=== PATIENT | female | born 1990 | race Caucasian/White ===

== ENCOUNTER 2024-08-03 13:03 | Emergency (ER) | payer OTHER, SELFPAY ==
[2024-08-03 13:11] VITALS: BP 136/85; PULSE 74; RESP 16; TEMP 36.6; O2SAT 100
[2024-08-03 13:17] LABS: BEDSIDEPREGUCG Negative (Negative)
[2024-08-03 13:28] LABS: Basophils Absolute Auto 0.1 K/mm3 (0.0-0.1); Basophils Percent Auto 0.9 % (0.2-1.2); Eosinophils Absolute Auto 0.3 K/mm3 (0-0.3); Eosinophils Percent Auto 2.9 % (0-4.4); Hematocrit 43.5 % (37.0-47.0); Hemoglobin 15.1 g/dL (12.0-15.0); Immature Granulocyte Absolute 0.01 K/mm3 (0.00-0.031); Immature Granulocyte Percent A 0.1 % (0-0.5); Lymphocytes Absolute Auto 2.78 K/mm3 (0.9-3.2); Lymphocytes Percent Auto 31.3 % (18.3-44.2); Mean Corpuscular HGB Conc 34.7 g/dl (32-36); Mean Corpuscular Hemoglobin 33.1 pg (26-34); Mean Corpuscular Volume 95.4 fl (80-100); Mean Platelet Volume 9.7 fl (7.4-10.4); Monocytes Absolute Auto 0.6 K/mm3 (0.1-0.6); Monocytes Percent Auto 6.7 % (2.6-8.5); Neutrophils Absolute Auto 5.2 K/mm3 (1.3-6.7); Neutrophils Percent Auto 58.1 % (45.5-73.1); Platelet Count Result 226 k/mm3 (150-375); Red Blood Count 4.56 M/mm3 (4.2-5.4); Red Cell Distribution Width 11.9 % (11.5-14.5); White Blood Count 8.9 K/mm3 (4.5-10.0)
[2024-08-03 13:32] LABS: Add Urine Microscopic? YES; Appearance Urine Clear (Clear); Bacteria Urine None Seen /hpf; Bilirubin Urine 1+ (Negative); Blood Urine Negative (Negative); Color Urine Dark Yellow (Yellow); Glucose Urine UA Negative (Negative); Ketones Urine 1+ mg/dL (Negative); Leukocyte Esterase Ur 2+ LEU/UL (Negative); Nitrate Urine Negative (Negative); Non Pathogenic Casts 0-2; Protein Urine Trace mg/dL (Negative); Specific Grav Ur 1.021 (1.001-1.035); Squamous Epithelial Cell Urine None Seen /hpf (Few); WBC Urine 21-50 /hpf (0-3); pH Urine 6.5 (5.0-9.0)
[2024-08-03 13:40] LABS: Alanine Aminotransferase 16 U/L (6-35); Albumin Level 4.6 g/dL (3.5-5.1); Alkaline Phosphatase 74 U/L (38-126); Anion Gap 7 mmol/L (4-12); Aspartate Amino Transferase 24 U/L (14-36); Bilirubin,Total 0.8 mg/dL (0.2-1.3); Blood Urea Nitrogen 10 mg/dL (7-17); Calcium 9.4 mg/dL (8.4-10.2); Carbon Dioxide 35 mmol/L (22-30); Chloride 97 mmol/L (98-107); Estimated CRCL calculation 144 ml/min; Estimated Glomerular Filt Rate > 60; Glucose 90 mg/dL (65-110); Lipase 68 U/L (23-300); Potassium 3.2 mmol/L (3.4-5.0); Sodium 139 mmol/L (137-145)
[2024-08-03 15:24] LABS: Trichomonas Vag PCR DETECTED (NOT DETECTE)
--- NOTE | 2024-08-03 15:35 | ED.GENADULT ---
HPI - General Adult General Chief complaint: Abdominal Pain Stated complaint: burning with urination, lower abd. pain Time Seen by Provider: 08/03/24 13:23 History of Present Illness HPI narrative: 34-year-old female presented to the emergency department for evaluation for urinary symptoms and vaginal soreness. Patient states that when she had her routine follow-up with her OB Gyne on 06/25 she had negative STI testing but did test positive for BV at this time patient was in is asymptomatic ramirez she was not treated with antibiotics. Patient states about a week ago she began developing urinary symptoms. Patient was treated with Macrobid but states that her symptoms are continuing to worsen. Patient reports clear vaginal discharge, vaginal soreness and pain with urination. Related Data Allergies Allergy/AdvReac Type Severity Reaction Status Date / Time codeine Allergy Hives Verified 08/03/24 13:04 Review of Systems Review of Systems: All systems reviewed & are unremarkable except as noted in HPI and below Exam Narrative: APPEARANCE: Well appearing, no pain, no distress, well-nourished. HEAD: normocephalic, atraumatic. EYES: PERRLA/EOMI, conjunctivae clear. NOSE: Normal no drainage EARS:TMS clear with good light reflex. THROAT: Pharynx clear, no exudate. NECK: Supple. No adenopathy, no masses. RESPIRATORY: Airway patent, respirations nonlabored. Clear to auscultation bilaterally, no rales, rhonchi, wheezing. CARDIOVASCULAR: Regular rate and rhythm without murmurs rubs or gallops. ABDOMINAL: Soft, nontender, nondistended, normal bowel sounds MUSCULOSKELETAL: Moves all extremities. Strength/ROM intact, No edema, No calf tenderness. NEURO: Alert. Cranial nerves II through XII intact. grossly intact SKIN: Warm, dry. Normal Color Course Vital Signs Vital signs: Vital Signs Temperature 97.9 F 08/03/24 13:11 Pulse Rate 74 08/03/24 13:11 Respiratory Rate 16 08/03/24 13:11 Blood Pressure 136/85 08/03/24 13:11 Pulse Oximetry 100 08/03/24 13:11 Oxygen Delivery Room Air 08/03/24 13:11 Temperature 97.9 F 08/03/24 13:11 Pulse Rate 86 08/03/24 15:38 Respiratory Rate 15 08/03/24 15:38 Blood Pressure 128/76 08/03/24 15:38 Pulse Oximetry 99 08/03/24 15:38 Oxygen Delivery Room Air 08/03/24 13:11 Medical Decision Making MDM Narrative Medical decision making narrative: 34-year-old female presents to the emergency department for evaluation for urinary symptoms. Urine is concerning for urinary tract infection and patient was started on Rocephin and will be discharged home on Keflex. Patient did test positive for Trichomonas and was started on Flagyl emergency department. Patient will be discharged home Flagyl for home as well. patient was of the results of the workup and plan for treatment. All questions concerns were addressed. Differential Diagnosis Differential Diagnosis: Urinary tract infection, chlamydia, gonorrhea, Trichomonas, bacterial vaginosis Vital Signs Vital Signs: Vital Signs Temperature 97.9 F 08/03/24 13:11 Pulse Rate 74 08/03/24 13:11 Respiratory Rate 16 08/03/24 13:11 Blood Pressure 136/85 08/03/24 13:11 Pulse Oximetry 100 08/03/24 13:11 Oxygen Delivery Room Air 08/03/24 13:11 Temperature 97.9 F 08/03/24 13:11 Pulse Rate 86 08/03/24 15:38 Respiratory Rate 15 08/03/24 15:38 Blood Pressure 128/76 08/03/24 15:38 Pulse Oximetry 99 08/03/24 15:38 Oxygen Delivery Room Air 08/03/24 13:11 Lab Data Lab results reviewed: Yes I reviewed the patient's lab results. 08/03/24 13:19 08/03/24 13:19 Labs: Lab Results 08/03/24 08/03/24 Range/Units 13:16 13:19 WBC 8.9 (4.5-10.0) K/mm3 RBC 4.56 (4.2-5.4) M/mm3 Hgb 15.1 H (12.0-15.0) g/dL Hct 43.5 (37.0-47.0) % MCV 95.4 (80-100) fl MCH 33.1 (26-34) pg MCHC 34.7 (32-36) g/dl RDW 11.9 (11.5-14.5) % Plt Count 226 (150-375) k/mm3 MPV 9.7 (7.4-10.4) fl Immature Gran % (Auto) 0.1 (0-0.5) % Neut % (Auto) 58.1 (45.5-73.1) % Lymph % (Auto) 31.3 (18.3-44.2) % [place] % (Auto) 6.7 (2.6-8.5) % Eos % (Auto) 2.9 (0-4.4) % Baso % (Auto) 0.9 (0.2-1.2) % Lymph # (Auto) 2.78 (0.9-3.2) K/mm3 [place] # (Auto) 0.6 (0.1-0.6) K/mm3 Eos # (Auto) 0.3 (0-0.3) K/mm3 Baso # (Auto) 0.1 (0.0-0.1) K/mm3 Abs Immat Gran (auto) 0.01 (0.00-0.031) K/mm3 Absolute Neuts (auto) 5.2 (1.3-6.7) K/mm3 Absolute Nucleated RBC 0.000 (0.0-0.012) K/mm3 Nucleated RBC % 0.0 (0.0-0.2) % Sodium 139 (137-145) mmol/L Potassium 3.2 L (3.4-5.0) mmol/L Chloride 97 L (98-107) mmol/L Carbon Dioxide 35 H (22-30) mmol/L Anion Gap 7 (4-12) mmol/L BUN 10 (7-17) mg/dL Creatinine 0.60 L (0.7-1.0) mg/dL Estim Creat Clear Calc 144 ml/min Estimated GFR > 60 (59 - ) Glucose 90 (65-110) mg/dL Calcium 9.4 (8.4-10.2) mg/dL Total Bilirubin 0.8 (0.2-1.3) mg/dL AST 24 (14-36) U/L ALT 16 (6-35) U/L Alkaline Phosphatase 74 (38-126) U/L Total Protein 8.0 (6.3-8.2) g/dL Albumin 4.6 (3.5-5.1) g/dL Lipase 68 (23-300) U/L Urine Color Dark yellow (Yellow) Urine Appearance Clear (Clear) Urine pH 6.5 (5.0-9.0) Ur Specific [place] 1.021 (1.001-1.035) Urine Protein Trace (Negative) mg/dL Urine Glucose (UA) Negative (Negative) mg/dL Urine Ketones 1+ H (Negative) mg/dL Ur Blood (Man) Negative (Negative) Urine Nitrate Negative (Negative) Urine Bilirubin 1+ H (Negative) Urine Urobilinogen 1.0 (<2.0) mg/dL Leukocyte Esterase Rfl 2+ H (Negative) BRITTNEY/UL Urine RBC 3-5 H (0-2) /hpf Urine WBC 21-50 H (0-3) /hpf Ur Squamous Epith Cells None seen (Few) /hpf Urine Bacteria None seen /hpf Urine Casts 0-2 POC Urine HCG, Qual Negative (Negative) C. trachomatis (PCR) Not detected (NOT DETECTE) N. gonorrhoeae (PCR) Not detected (NOT DETECTE) T. vaginalis (PCR) Detected A (NOT DETECTE) Discharge Plan Discharge Clinical Impression: UTI (urinary tract infection), Trichomonas infection Patient Disposition: Home, Self-Care Condition: Stable Instructions: Antibiotic Form, Bacterial Vaginosis (ED), Urinary Tract Infection in Women (DC) Additional Instructions: Antibiotic as directed for the urinary tract infection. Antibiotic as directed for Trichomonas. have close follow-up with OB Gyne. if you have any worsening symptoms then please call or return to the emergency department. Prescriptions: New cephalexin 500 mg capsule 500 mg PO Q8H 7 Days Qty: 21 0RF metronidazole 500 mg tablet 500 mg PO Q8H 7 Days Qty: 21 0RF Follow-up/Referrals: Nayan,Chantell Mckeon. [Primary Care Provider] -
[2024-08-03 15:38] VITALS: BP 128/76; PULSE 86; RESP 15; O2SAT 99
[2024-08-03] MEDS: metroNIDAZOLE 500 MG TABLET PO (15:58)
[2024-08-03 15:59] LABS: Chlamydia trachomatis NOT DETECTED (NOT DETECTE); Neisseria gonorrhoeae PCR NOT DETECTED (NOT DETECTE)
== END 2024-08-03 16:33 | disposition home or self-care (01) ==
PROVIDERS: Emergency Provider Emergency Medicine; PCP Internal Medicine Infectious Disease
DX: N39.0 Urinary tract infection, site not specified (principal); A59.01 Trichomonal vulvovaginitis
CPT/HCPCS: 36415; 80053; 81001; 81025; 83690; 85025; 87086; 87491; 87591; 87661; 96365; 99284; A9270; J0696

== ENCOUNTER 2024-09-20 12:47 | Emergency (ER) | payer OTHER, SELFPAY ==
[2024-09-20 13:02] VITALS: BP 142/73; PULSE 89; RESP 18; TEMP 36.3; O2SAT 100
--- NOTE | 2024-09-20 13:20 | ED_ITS ---
HPI - Nausea/Vomiting/Diarrhea General Chief complaint: Nausea/Vomiting/Diarrhea Stated complaint: abd pain, vomiting Focused HPI: This is a 34-year-old female who presents to the ED for chief complaint of N/ V since 0 400 this morning. Patient reports that she had some leftover last night to eat but was feeling fine until the middle of the night. States that she is having mild abdominal pain diffusely. Denies diarrhea, fevers, chills. GENERAL: Well-appearing, well-nourished, and in no acute distress. HEAD: Normocephalic, atraumatic. CHEST: Clear to auscultation. No respiratory distress. HEART: Regular rate and rhythm. NEURO: Alert and oriented x3. Patient screened in triage and initial orders placed. Additional care and disposition to be based upon diagnostic testing and treatment. Source: patient Mode of arrival: ambulatory Limitations: no limitations Related Data Allergies Allergy/AdvReac Type Severity Reaction Status Date / Time codeine Allergy Hives Verified 08/03/24 13:04 Course Vital Signs Vital signs: Vital Signs Temperature 97.3 F L 09/20/24 13:02 Pulse Rate 89 09/20/24 13:02 Respiratory Rate 18 09/20/24 13:02 Blood Pressure 142/73 H 09/20/24 13:02 Pulse Oximetry 100 09/20/24 13:02 Oxygen Delivery Room Air 09/20/24 13:02 Temperature 97.3 F L 09/20/24 13:02 Pulse Rate 89 09/20/24 13:02 Respiratory Rate 18 09/20/24 13:02 Blood Pressure 142/73 H 09/20/24 13:02 Pulse Oximetry 100 09/20/24 13:02 Oxygen Delivery Room Air 09/20/24 13:02 Discharge Plan Discharge Patient Language: Vietnamese Prescriptions: No Action cephalexin 500 mg capsule 500 mg PO Q8H 7 Days Qty: 21 0RF metronidazole 500 mg tablet 500 mg PO Q8H 7 Days Qty: 21 0RF Follow-up/Referrals: Nayan,Danny Mckeon [Primary Care Provider] -
== END 2024-09-20 21:25 | disposition left against medical advice (07) ==
LOC: ANHED 19:11
PROVIDERS: Emergency Provider Physician Assistant; PCP Internal Medicine Infectious Disease
DX: K52.9 Noninfective gastroenteritis and colitis, unspecified (principal)
CPT/HCPCS: 99281

== ENCOUNTER 2025-06-10 13:02 | Emergency (ER) | payer MEDICAID, SELFPAY ==
--- NOTE | ~2025-06-10 | US_ITS ---
EXAM/PROCEDURE: US OB <=14 wk fetus w TV - 06/10/2025 13:43 CDT HISTORY: 35 years old Female with ectopic COMPARISON: None available. TECHNIQUE: Multiple transvaginal images were obtained. FINdINGS: There is a single, live, intrauterine gestation with a heart rate of 119 bpm. The crown-rump length is 8 mm, which is equivalent to a 6 week, 5 day gestation. This gives an estimated date of delivery of 01/29/2026. An unremarkable yolk sac is seen. The gestational sac is unremarkable. There is no myometrial abnormality. The ovaries appear unremarkable. No significant free fluid is seen. IMPRESSION: Single live embryo with estimated date of delivery of 01/29/2026. Reviewed, dictated and finalized at location N.
[2025-06-10 13:05] VITALS: BP 127/60; PULSE 72; RESP 15; TEMP 37.2; O2SAT 100
--- NOTE | 2025-06-10 13:32 | ED.FEMALEGU ---
HPI - Female Genitourinary General Chief complaint: Vaginal Bleeding Stated complaint: spotting, cramping, 6-7 w eeks Time Seen by Provider: 06/10/25 13:29 Source: patient Mode of arrival: ambulatory Limitations: no limitations History of Present Illness HPI Narrative: 35 years old white female came to the ED by private car because after finishing urinating was wiping, noticed pink discoloration on the toilet paper, last menstrual period April 23, 2025. Patient is 4, para 1 3. patient denies any pain, fever, chills, nausea, vomiting, diarrhea, constipation or urinary symptoms Related Data Home Medications ?Medication ?Instructions ?Recorded ?Confirmed ?Last Taken ?Type chlorthalidone 25 mg tablet 25 mg PO 06/03/25 06/04/25 Unknown History levothyroxine 125 mcg tablet 125 mcg PO 06/03/25 06/04/25 Unknown History losartan 50 mg tablet 50 mg PO 06/03/25 06/04/25 Unknown History folic acid 20 mg capsule 80 mg PO DAILY 06/04/25 06/04/25 Unknown History vits no.126-ferrous fum tablet PO 06/04/25 06/04/25 Unknown History 28 mg iron-folic acid 800 mcg tablet (Classic ) Allergies Allergy/AdvReac Type Severity Reaction Status Date / Time Penicillins Allergy Mild Hives Verified 06/04/25 10:28 codeine Allergy Hives Verified 06/04/25 10:28 Review of Systems Review of Systems: All systems reviewed & are unremarkable except as noted in HPI and below PMFSH Past Medical History Medical History Hypertension Pulmonary embolism Surgical History Surgical History History of orthopedic surgery Hx of tonsillectomy Family History Family History Mother Diabetes mellitus Hypertension Father Depression Grandparent Depression Hypertension Social History Social History Smoking status: Never smoker Alcohol intake: former Alcohol use details: social Substance use: former Substance use type: marijuana Do You Feel Safe in your Home?: Yes Lack of Transportation: No Lack of Food: Never True Current Housing: I Have Housing Concerned About Future Housing: No Difficulty Paying Gas/Electric Bills: No Difficulty Paying for Meds: No Currently Unemployed: No Education: High School Diploma/GED Difficulty w/ Childcare or Family Care: No Living arrangements: with family Occupation/Education: occupation Gender identity (if verbalized by the patient): Female Sexual Orientation (if Verbalized by the Patient): Straight or Heterosexual Exam Narrative: General appearance: Well-developed, well-nourished Skin: Normal color Head: Normocephalic, nontraumatic Eyes: Clear conjunctiva ENT: Oropharynx normal, ears normal, nose normal Neck: Supple, nontender Chest and respiratory: Airway patent, no respiratory distress, no accessory muscle use Heart: Regular rate/rhythm Abdomen: Soft, nontender, no organomegaly, quiet bowel sounds Vascular: Normal peripheral pulses, normal capillary refill. Musculoskeletal: Normal range of motion, nontender back Neurologic: Alert and oriented ?3, SUPERVISOR PATCHING is normal as tested, no gross motor deficit Course Vital Signs Vital signs: Vital Signs Temperature 37.2 C 06/10/25 13:05 Pulse Rate 72 06/10/25 13:05 Respiratory Rate 15 06/10/25 13:05 Blood Pressure 127/60 06/10/25 13:05 Pulse Oximetry 100 06/10/25 13:05 Temperature 37.2 C 06/10/25 13:05 Pulse Rate 67 06/10/25 16:05 Respiratory Rate 20 06/10/25 16:05 Blood Pressure 125/76 06/10/25 16:05 Pulse Oximetry 97 06/10/25 16:05 Oxygen Delivery Room Air 06/10/25 14:14 MDM - Female Genitourinary MDM Narrative Medical decision making narrative: Differential diagnosis include ectopic , threatened , incomplete, complete Blood workup today showed no acute abnormality Pelvic ultrasound showed single live intrauterine otherwise within normal limit Pelvic exam unremarkable Discharged home to follow-up with OBGYN as needed Pelvic rest and bed rest for the next 5-7 days. Patient blood type is negative, RhoGAM given prior to discharge Differential Diagnosis Differential diagnosis: Likely other (As above) Medical Records Attestation: I reviewed the patient's medical records. Lab Data Attestation: I reviewed the patient's lab results. 06/10/25 14:31 06/10/25 14:31 Labs: Lab Results 06/10/25 06/10/25 Range/Units 14:31 16:06 WBC 7.3 (4.5-10.0) K/mm3 RBC 3.78 L (4.2-5.4) M/mm3 Hgb 12.3 (12.0-15.0) g/dL Hct 36.0 L (37.0-47.0) % MCV 95.2 (80-100) fl MCH 32.5 (26-34) pg MCHC 34.2 (32-36) g/dl RDW 12.3 (11.5-14.5) % Plt Count 188 (150-375) k/mm3 MPV 9.9 (7.4-10.4) fl Immature Gran % (Auto) 0.3 (0-0.5) % Neut % (Auto) 64.3 (45.5-73.1) % Lymph % (Auto) 26.3 (18.3-44.2) % [place] % (Auto) 8.0 (2.6-8.5) % Eos % (Auto) 0.8 (0-4.4) % Baso % (Auto) 0.3 (0.2-1.2) % Lymph # (Auto) 1.92 (0.9-3.2) K/mm3 [place] # (Auto) 0.6 (0.1-0.6) K/mm3 Eos # (Auto) 0.1 (0-0.3) K/mm3 Baso # (Auto) 0.0 (0.0-0.1) K/mm3 Abs Immat Gran (auto) 0.02 (0.00-0.031) K/mm3 Absolute Neuts (auto) 4.7 (1.3-6.7) K/mm3 Absolute Nucleated RBC 0.000 (0.0-0.012) K/mm3 Nucleated RBC % 0.0 (0.0-0.2) % Sodium 135 L (137-145) mmol/L Potassium 4.1 (3.4-5.0) mmol/L Chloride 103 (98-107) mmol/L Carbon Dioxide 28 (22-30) mmol/L Anion Gap 4 (4-12) mmol/L BUN 12 (7-17) mg/dL Creatinine 0.59 L (0.7-1.0) mg/dL Estim Creat Clear Calc 151 ml/min Estimated GFR > 60 (59 - ) Glucose 95 (65-110) mg/dL Calcium 8.7 (8.4-10.2) mg/dL Total Bilirubin 0.5 (0.2-1.3) mg/dL AST 22 (14-36) U/L ALT 14 (6-35) U/L Alkaline Phosphatase 58 (38-126) U/L Total Protein 6.0 L (6.3-8.2) g/dL Albumin 3.6 (3.5-5.1) g/dL Beta HCG, Quant 01475.00 mIU/ML Urine Color Yellow (Yellow) Urine Appearance Clear (Clear) Urine pH 6.5 (5.0-9.0) Ur Specific [place] 1.015 (1.001-1.035) Urine Protein Negative (Negative) mg/dL Urine Glucose (UA) Negative (Negative) mg/dL Urine Ketones Negative (Negative) mg/dL Ur Blood (Man) Negative (Negative) Urine Nitrate Negative (Negative) Urine Bilirubin Negative (Negative) Urine Urobilinogen 1.0 (<2.0) mg/dL Leukocyte Esterase Rfl Negative (Negative) BRITTNEY/UL Blood Type A Negative Antibody Screen Negative Screen Not Reportable Baby's Blood Type Not Reportable Baby's GLADYS Not Reportable Doses of RhIg Required 1 Imaging Data Radiologist's impression: Impressions Obstetrics Ultrasound 06/10/25 14:21 IMPRESSION: Single live embryo with estimated date of delivery of 01/29/2026. Critical Care Time Critical Care Time Critical Care Time: No Discharge Plan Discharge Clinical Impression: , threatened Patient Disposition: Home Condition: Stable Instructions: Threatened Miscarriage (ED) Additional Instructions: Return if symptoms are worsening , call your OBGYN for appointment, take Tylenol as as needed for aches and pain, continue home medications., bed rest, pelvic rest Patient Language: [place]ill[place] Prescriptions: No Action losartan 50 mg tablet 50 mg PO chlorthalidone 25 mg tablet 25 mg PO levothyroxine 125 mcg tablet 125 mcg PO folic acid 20 mg capsule 80 mg PO DAILY Classic 28 mg iron- 800 mcg tablet PO progesterone micronized 200 mg capsule 200 mg vaginal QHS Qty: 20 0RF enoxaparin [Lovenox] 40 mg/0.4 mL syringe 40 mg subcut DAILY 240 Days Qty: 96 0RF Follow-up/Referrals: Nayan,Chantell Mckeon. [Primary Care Provider]
[2025-06-10 14:14] VITALS: BP 126/72; PULSE 64; RESP 20; O2SAT 100
[2025-06-10 14:37] LABS: Hematocrit 36.0 % (37.0-47.0); Hemoglobin 12.3 g/dL (12.0-15.0); Immature Granulocyte Percent A 0.3 % (0-0.5); Lymphocytes Absolute Auto 1.92 K/mm3 (0.9-3.2); Mean Corpuscular HGB Conc 34.2 g/dl (32-36); Mean Corpuscular Hemoglobin 32.5 pg (26-34); Mean Corpuscular Volume 95.2 fl (80-100); Nucleated Red Blood Cells Absolute Auto 0.000 K/mm3 (0.0-0.012); Nucleated Red Blood Cells Perc 0.0 % (0.0-0.2); Platelet Count Result 188 k/mm3 (150-375); Red Blood Count 3.78 M/mm3 (4.2-5.4); White Blood Count 7.3 K/mm3 (4.5-10.0)
--- OUTSIDE RECORDS SUMMARY | 2025-06-10 14:40 | XMS_ITS | Clinical Summary ---
Author Organization [facility] Address [address] [place] [address] Care Team Providers Care Cordwood Cutter Helper Name Role Phone Unavailable Primary Care Provider Unavailabl e Source Comments [facility],non-owned Affiliates and Associated Physician Practices is amultiple site organization consisting of ambulatory clinics and hospital sitesin [place], [place], [place] and [place]. This disclosure is being madepursuant to the Care Everywhere program and may not contain all information available regarding this patient. Last updated 18.[facility] [employer] Allergies Active Allergy Reactions Criticality Noted Date Comments Codeine Urticaria 12/22/2012 Pt states to nurse today (12/28/12) that she has taken percocet before. Inez Irizarry, Pharm.D Ext [phone] Codeine Anaphylaxis High 09/25/1999 Medications * Be aware that medications may not be up to date on this document. Alwaysverify current medications with the patient. progesterone micronized (PROMETRIUM) 100 MG capsule Take 100 mg by mouth twice daily before meal and at bedtime. Active Cholecalciferol (VITAMIN D) 1000 UNIT capsule Take 1,000 Units by mouth once daily. Active vitamin-ferrous fumarate-folic acid (NATALCARE PLUS) 27-1 MG tablet Take 1 Tab by mouth once daily. Active levothyroxine (SYNTHROID) 125 MCG tabletIndicatio ns:Hypothyroidi sm Take 125 mcg by mouth daily before breakfast. Indications: Underactive Thyroid Active ibuprofen (MOTRIN) 600 MG tablet Take 1 Tab by mouth every 6 hours as needed for Pain. 60 Tab 1 3 Active Additional Information Patient not taking.Reported on 08/07/2020 docusate sodium (COLACE) 100 MG capsule Take 1 Cap by mouth 2 times daily. 60 Cap 1 3 Active Additional Information Patient not taking.Reported on 08/07/2020 multivitamin (OPURITY) CHEW tablet Take 1.25 mg by mouth once daily Active gabapentin (NEURONTIN) 100 MG capsule Take 1 capsule by mouth 3 times daily 90 capsule 2 0 Active Active Problems Problem Noted Date Diagnosed Date Cord Blood Chorioamnionitis study patient 2012 Overview (12/25/2012): This patient is consented and enrolled in the Cord Blood Chorioamnionitis Research study. 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 Hypothyroidism complicating 12/22/2012 Overview (12/22/2012): Levothyroxine 125 mcg initiated Mid-November 2012 Obesity 12/22/2012 Overview (12/22/2012): Patient reports normal GCT - will obtain records with accuchecks until that time labor 12/22/2012 Supervision of high-risk 12/22/2012 Overview (12/25/2012): Transfer from Dr. Morris Rh negative, rhogam given 12/12 GCT normal per patient. Due date by LMP=8wk us A-/I/-/- HIV NR Comments Yes Encounters Date Type Department Care Team Description 06/09/2025 Travel from Last 3 Months Immunizations Immunization Administration Dates Next Due Rho D Immune Globulin 12/29/2012 Family History Medical History Relation Name Comments Diabetes Maternal Grandmother Hypertension Maternal Grandmother Depression Mother Diabetes Mother Hypertension Mother Leukemia Paternal Grandfather possibl e environmental cause Diabetes Paternal Grandmother Leukemia Paternal Grandmother possibl e environmental cause Other - Defects Sister cleft lip Relation Name Status Comments Maternal Grandmother Mother Paternal Grandfather Paternal Grandmother Sister Social History Tobacco Use Types Packs/Day Years Used Date Smoking Tobacco: Never Smokeless Tobacco: Never Tobacco Cessation:Counseling Given: Yes Alcohol Use Standard Drinks/Week Comments Not Currently 0 (1 standard drink = 0.6 oz pur e alcohol) Comments Yes Sex and Gender Information Value Date Recorded Sex Assigned at Not on file Legal Sex 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 Gender Identity Not on file Sexual Orientation Not on file Last Filed Vital Signs Vital Sign Reading Time Taken Comments Blood Pressure 135/87 08/07/2020 2:10 PM MUNITIONS HANDLER SUPERVISOR Pulse 73 08/07/2020 2:10 PM MUNITIONS HANDLER SUPERVISOR Temperature 36.8 C (98.2 F) 07/06/2017 1:30 PM CDT Respiratory Rate 16 07/06/2017 4:15 PM CDT Oxygen Saturation 96% 07/06/2017 4:15 PM CDT Inhaled Oxygen Concentration - - Weight 134.4 kg (296 lb 3.2 oz) 08/07/2020 2:10 PM MUNITIONS HANDLER SUPERVISOR Height 167.6 cm (5' 6) 08/07/2020 2:10 PM MUNITIONS HANDLER SUPERVISOR Body Mass Index 47.81 08/07/2020 2:10 PM MUNITIONS HANDLER SUPERVISOR Plan of Treatment Upcoming Encounters Date Type Department Care Team (Late st Contact Info) Description 06/11/2025 8:15 AM CDT Hospital Encounter [facility] & Care [address] [place] [address] [facility] 4TH [place] [phone] Health Maintenance Due Date Last Done Comments HIV SCREENING 2003 HEPATITIS C SCREENING 04/20/2006 DTAP/TDAP/TD VACCINES (1 - Tdap) 2007 HEPATITIS B VACCINE (1 of 3 - 19+ 3-dose series) 2007 PAP SMEAR 2009 HPV VACCINE (1 - 3-dose SCDM series) 2015 DEPRESSION SCREENING 09/25/2024 COVID-19 VACCINE (3 - 2024- season) 2025 11/22/2021, 08/26/2021 INFLUENZA VACCINE (#1) 2025 , 07/12/2023, 06/10/2022, Additional history exists ZOSTER VACCINE (1 of 2) 2038 Respiratory Syncytial Virus (RSV) Vaccine Pt: or over 60 yrs (1 - 1-dose 75+ series) 2063 HIB VACCINE Aged Out No longer eligi ble based on patient's age to complete this topic MENINGOCOCCAL (Group B) VACCINE SHARED DECISION-MAKING Aged Out No longer eligible based on patient's age to complete this topic MENINGOCOCCAL GROUPS A/C/Y/W VACCINE Aged Out No longer eligible based on patient's age to complete this topic PNEUMOCOCCAL VACCINE Aged Out No long er eligible based on patient's age to complete this topic Procedures Procedure Name Priority Date/Time Associated Diagnosis Comments CULTURE STREP B STAT 12/22/2012 1:10 AM CDT from Last 3 Months or Most Recently Relevant to Health Maintenance Results * CULTURE STREP B (12/22/2012 1:10 AM CDT) Culture Negative for Beta Hemolytic Streptococcus Group B 12/25/2012 5:59 AM CDT [facility] Miscellaneous samples (specimen) PART OF UTERINE CERVIX / Unknown 12/22/2012 1:10 AM CDT 12/22/2012 1:18 AM CDT us Sapna Jerome MD LAB - MICROBIOLOGY ORD ERABLES Final Result [facility] [address] [place] [address], [facility] from Last 3 Months or Most Recently Relevant to Health Maintenance Insurance MEDICAID - [place] Advance Directives * FULL RESUSCITATION (Latest Code Status on File) Date Activated Date Inactivated Comments 12/25/2012 3:16 AM 12/30/2012 3:28 PM * FULL RESUSCITATION Date Activated Date Inactivated Comments 12/22/2012 12:48 AM 12/25/2012 3:16 AM
--- OUTSIDE RECORDS SUMMARY | 2025-06-10 14:40 | XMS_ITS | Encounter Summary ---
Author Organization [facility] Address [address] [place] [address] Care Team Providers Care Principal Biostatistician Name Role Phone Unavailable Primary Care Provider Unavailabl e Encounter Details Date Type Department Care Team (Latest Contact Info) Description 06/09/2025 Travel Social History Tobacco Use Types Packs/Day Years Used Date Smoking Tobacco: Never Smokeless Tobacco: Never Alcohol Use Standard Drinks/Week Comments Not Currently 0 (1 standard drink = 0.6 oz pur e alcohol) Comments Yes Sex and Gender Information Value Date Recorded Sex Assigned at Not on file Legal Sex 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
[2025-06-10 14:47] LABS: Alanine Aminotransferase 14 U/L (6-35); Albumin Level 3.6 g/dL (3.5-5.1); Alkaline Phosphatase 58 U/L (38-126); Anion Gap 4 mmol/L (4-12); Aspartate Amino Transferase 22 U/L (14-36); Bilirubin,Total 0.5 mg/dL (0.2-1.3); Blood Urea Nitrogen 12 mg/dL (7-17); Calcium 8.7 mg/dL (8.4-10.2); Carbon Dioxide 28 mmol/L (22-30); Chloride 103 mmol/L (98-107); Estimated CRCL calculation 151 ml/min; Estimated Glomerular Filt Rate > 60; Glucose 95 mg/dL (65-110); Potassium 4.1 mmol/L (3.4-5.0); Sodium 135 mmol/L (137-145); Total Protein 6.0 g/dL (6.3-8.2)
--- OUTSIDE RECORDS SUMMARY | 2025-06-10 15:19 | XMS_ITS | Clinical Summary ---
Author Organization [facility] Address [address] [place] [address] Care Team Providers Care Data Warehousing Specialist Name Role Phone Unavailable Primary Care Provider Unavailabl e Source Comments [facility],non-owned Affiliates and Associated Physician Practices is amultiple site organization consisting of ambulatory clinics and hospital sitesin [place], [place], [place] and [place]. This disclosure is being madepursuant to the Care Everywhere program and may not contain all information available regarding this patient. 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 Gender Identity Not on file Sexual Orientation Not on file Last Filed Vital Signs Vital Sign Reading Time Taken Comments Blood Pressure 135/87 08/07/2020 2:10 PM TOOL RENTAL TECHNICIAN Pulse 73 08/07/2020 2:10 PM TOOL RENTAL TECHNICIAN Temperature 36.8 C (98.2 F) 07/06/2017 1:30 PM CDT Respiratory Rate 16 07/06/2017 4:15 PM CDT Oxygen Saturation 96% 07/06/2017 4:15 PM CDT Inhaled Oxygen Concentration - - Weight 134.4 kg (296 lb 3.2 oz) 08/07/2020 2:10 PM TOOL RENTAL TECHNICIAN Height 167.6 cm (5' 6) 08/07/2020 2:10 PM TOOL RENTAL TECHNICIAN Body Mass Index 47.81 08/07/2020 2:10 PM TOOL RENTAL TECHNICIAN Plan of Treatment Upcoming Encounters Date Type Department Care Team (Late st Contact Info) Description 06/11/2025 8:15 AM CDT Hospital Encounter [facility] [address] [place] [address] Anjana Steinberg MD [facility] [address] [place] [phone] Health Maintenance Due Date Last Done Comments [...] Streptococcus Group B 12/25/2012 5:59 AM CDT [facility] MICROBIOLOGY Miscellaneous samples (specimen) PART OF UTERINE CERVIX / Unknown 12/22/2012 1:10 AM CDT 12/22/2012 1:18 AM CDT us Sapna Jerome MD LAB - MICROBIOLOGY ORD ERABLES Final Result [facility] MICROBIOLOGY [address] [place] [address], [facility] from Last 3 Months or Most Recently Relevant to Health Maintenance Insurance MEDICAID - [place] Advance Directives * FULL RESUSCITATION (Latest Code Status on File) Date Activated Date Inactivated Comments 12/25/2012 3:16 AM 12/30/2012 3:28 PM * FULL RESUSCITATION Date Activated Date Inactivated Comments 12/22/2012 12:48 AM 12/25/2012 3:16 AM
--- OUTSIDE RECORDS SUMMARY | 2025-06-10 15:19 | XMS_ITS | Encounter Summary ---
Author Organization 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 [place] [id number] Anjana Steinberg MD [facility] [address] [place] [phone] documented as of this encounter Visit Diagnoses Not on filedocumented in this encounter
[2025-06-10 16:05] VITALS: BP 125/76; PULSE 67; RESP 20; O2SAT 97
[2025-06-10 16:07] LABS: Beta HCG Quantitative 57931.00 mIU/ML
[2025-06-10 16:20] LABS: Add Urine Microscopic? NO; Appearance Urine Clear (Clear); Glucose Urine UA Negative (Negative); Leukocyte Esterase Ur Negative LEU/UL (Negative); Nitrate Urine Negative (Negative); Specific Grav Ur 1.015 (1.001-1.035)
[2025-06-10] MEDS: RHO(D) IMMUNE GLOBULIN 300 MCG/2 ML SYRINGE IM (17:03)
== END 2025-06-10 17:14 | disposition home or self-care (01) ==
PROVIDERS: Emergency Provider Emergency Medicine; PCP Internal Medicine Infectious Disease
DX: O20.0 Threatened abortion (principal); O09.521 Supervision of elderly multigravida, first trimester; O10.911 Unspecified pre-existing hypertension complicating pregnancy, first trimester; Z86.711 Personal history of pulmonary embolism; Z3A.01 Less than 8 weeks gestation of pregnancy; Z79.899 Other long term (current) drug therapy
CPT/HCPCS: 36415; 76801; 76817; 80053; 81003; 84702; 85025; 85461; 86850; 86900; 86901; 90384; 96372; 99284; J2790